=== PATIENT | male | born 1970 | race Caucasian/White ===

== ENCOUNTER 2019-09-22 10:42 | Inpatient (IN) | payer BC, MEDICAID, MEDICARE ==
[2019-09-22] MEDS ORDERED: Acetaminophen/HYDROcodone 325-5 MG Tab PO PRN (16:47)
[2019-09-22] MEDS ORDERED: Albuterol 8 GM Inhaler INH PRN (16:47)
--- NOTE | 2019-09-22 17:29 | PCM.HP.2 ---
H&P History of Present Illness - General Date of Service: 09/22/19 Admit Problem/Dx: Admission Diagnosis/Problem Admission Diagnosis/Problem Osteomyelitis of toe of right foot Source of Information: Patient, Old Records, Provider - History of Present Illness Initial Comments - Free Text/Narative: Bahman present for swing bed admission for right 2nd toe osteomyelitis for IV antibiotics until Oct 24. He was admitted to [facility] on Sep 10-, had cut his right 2nd toenail the week prior to admission in [place], came in with swollen red toe. Started on Zosyn & Vancomycin, Ciprofloxacin & Flagyl in ER. Cr was 0.81 on admission, climbed to 1.66, Vancomycin trough was 32.7 on 09/13, was getting 1250 mg every 8 hours since admission, dose was held on 09/14, random vanco trough was 14.7, current dose of Vancomycin 1250 mg every 24 hrs was started on 09/15 to present. Last vancomycin trough was today before 1149 dose, came back at 13.4. Goal initially was 15-20, then changed to 10-15 for his renal function. Discharge paperwork states 15-20 goal but pharmacy will verify this. His creatinine today was 1.4. He underwent amputation of right 2nd toe on 09/12, dressing changed by podiatry today, has appt with them on 09/27 at 840am, dressing to stay in place until seen by podiatry. He is weight bearing with postop shoe. He was evaluated by PT/OT did not require any services. Follow up with Infectious disease on 10/12 at 1420. Also has nephrology appt on 09/28 at 1130 am and family medicine follow up on 09/28 at 1345. His last bowel movement was today. Eating and drinking well. Blood pressures were uncontrolled initially in [place] but controlled with Amlodipine and Coreg on discharge. Had PICC line placed at discharge by Infectious disease. Pain is controlled with Hydrocodone/APAP. - Related Data Allergies/Adverse Reactions: Allergies Allergy/AdvReac Type Severity Reaction Status Date / Time No Known Allergies Allergy Verified 09/22/19 17:18 Home Medications: Home Meds Albuterol Sulfate [Albuterol Sulfate Hfa] 1 puff INH Q4H PRN 09/22/19 [History] Cefepime [Maxipime] 2 gm IVPUSH Q8H 09/22/19 [History] Docusate Sodium/Sennosides [Senokot-S] 1 tab PO BID 09/22/19 [History] Heparin Sodium,Porcine/PF [Heparin Lock Flush 100 Unit/ml] 300 unit IV ASDIRECTED PRN 09/22/19 [History] Hydrocodone/Acetaminophen [Hydrocodon-Acetaminophen 5-325] 1 tab PO Q6H PRN 09/22/19 [History] Insulin Glarg,Human.Rec.Analog [Lantus Solostar] 15 unit SQ BID 09/22/19 [History] Vancomycin/0.9 % Sod Chloride [Vanco 1.25 gm/250 ml-0.9% NaCl] 1.25 gm IV Q24H 09/22/19 [History] amLODIPine Besylate [Amlodipine Besylate] 10 mg PO DAILY 09/22/19 [History] carvediloL [Coreg] 25 mg PO BIDMEALS 09/22/19 [History] metroNIDAZOLE [Metronidazole] 500 mg PO TID 09/22/19 [History] polyethylene glycoL 3350 [MiraLAX] 17 gm PO DAILY 09/22/19 [History] Past Medical History Endocrine/Metabolic History: Reports: Diabetes, Type II - Past Surgical History Musculoskeletal Surgical History: Reports: Amputation (right 2nd toe 09/13/2019) Social & Family History - Tobacco Use Smoking Status *Q: Current Every Day Smoker - Alcohol Use Alcohol Use History: Yes H&P Review of Systems - Review of Systems: Review Of Systems: See Below General: Reports: No Symptoms HEENT: Reports: No Symptoms Pulmonary: Reports: No Symptoms Cardiovascular: Reports: No Symptoms Gastrointestinal: Reports: No Symptoms Genitourinary: Reports: No Symptoms Musculoskeletal: Reports: Foot Pain, Joint Pain (hands) Skin: Reports: Wound (right toe) Psychiatric: Reports: No Symptoms Neurological: Reports: No Symptoms Hematologic/Lymphatic: Reports: No Symptoms Immunologic: Reports: No Symptoms Exam - Exam Exam: See Below - Exam General: Alert, Oriented, Cooperative. No: Mild Distress HEENT: PERRLA, Conjunctiva Clear, EOMI, Hearing Intact, Posterior Pharynx Clear Neck: Supple, Trachea Midline Lungs: Clear to Auscultation, Normal Respiratory Effort Cardiovascular: Regular Rate, Regular Rhythm GI/Abdominal Exam: Normal Bowel Sounds, Soft, Non-Tender, No Distention (Male) Exam: Deferred Rectal (Males) Exam: Deferred Extremities: No Pedal Edema, Other (post-op shoe on right, dressing in place.) Peripheral Pulses: 2+: Radial (L), Radial (R) Skin: Wound (right 2nd toe) Psychiatric: Normal Affect, Normal Mood *Q Meaningful Use (ADM) - VTE Risk Assess *Q Each Risk Factor Represents 1 Point: Age 41 - 59 years, History of prior major surgery less than 1 month Total Score 1 Point Risk Factors: 2 Each Risk Factor Represents 2 Points: None Total Score 2 Point Risk Factors: 0 Each Risk Factor Represents 3 Points: None Total Score 3 Point Risk Factors: 0 Each Risk Factor Represents 5 Points: None Total Score 5 Point Risk Factors: 0 Venous Thromboembolism Risk Factor Score *Q: 2 - Problem List (1) Osteomyelitis of second toe of right foot SNOMED Code(s): 002468418, 891478777, 0696141500181846 ICD Code: M86.9 - OSTEOMYELITIS, UNSPECIFIED Status: Acute Current Visit: Yes (2) Status post amputation of toe of right foot SNOMED Code(s): 99141974413367735, 36466687565940192 ICD Code: Z89.421 - ACQUIRED ABSENCE OF OTHER RIGHT TOE(S) Status: Acute Current Visit: Yes Onset Date: ~09/13/19 (3) Diabetes SNOMED Code(s): 88901127 ICD Code: E11.9 - TYPE 2 DIABETES MELLITUS WITHOUT COMPLICATIONS Status: Chronic Current Visit: Yes Qualifiers: Diabetes mellitus type: type 2 Diabetes mellitus intermodal truck driver insulin use: unspecified intermodal truck driver insulin use status (4) History of alcohol dependence SNOMED Code(s): 187325805 ICD Code: F10.21 - ALCOHOL DEPENDENCE, IN REMISSION Status: Chronic Current Visit: Yes (5) Acute kidney injury SNOMED Code(s): 84472777, 19349077 ICD Code: N17.9 - ACUTE KIDNEY FAILURE, UNSPECIFIED Status: Acute Current Visit: Yes Onset Date: ~09/14/19 (6) Hypertension SNOMED Code(s): 91613138 ICD Code: I10 - ESSENTIAL (PRIMARY) HYPERTENSION Status: Chronic Current Visit: Yes Problem List Initiated/Reviewed/Updated: Yes Orders Last 24hrs: Active Orders 24 hr Category Date Time Status Patient Status [ADT] Routine ADT 09/22/19 16:30 Active Accu Check [Blood Glucose Check, Bedside] [RC] BIDMEALS Care 09/22/19 16:37 Active Ambulate [RC] PER UNIT ROUTINE Care 09/22/19 16:32 Active Height and Weight [RC] WEEKLY Care 09/22/19 16:30 Active Oxygen Therapy [RC] PRN Care 09/22/19 16:30 Active RT Post Treatment Assessment [RC] Click to Edit Care 09/22/19 16:48 Ordered Up ad Kiel [RC] ASDIRECTED Care 09/22/19 16:30 Active VTE/DVT Education [RC] Per Unit Routine Care 09/22/19 16:30 Active Vital Signs [RC] PER UNIT ROUTINE Care 09/22/19 16:30 Active Consistent Carbohydrate Diet [DIET] Diet 09/22/19 Dinner Active ALANINE AMINOTRANSFERASE,ALT [CHEM] WEEKLY Lab 09/27/19 06:00 Ordered ALANINE AMINOTRANSFERASE,ALT [CHEM] WEEKLY Lab 10/04/19 06:00 Ordered ALANINE AMINOTRANSFERASE,ALT [CHEM] WEEKLY Lab 10/11/19 06:00 Ordered ALANINE AMINOTRANSFERASE,ALT [CHEM] WEEKLY Lab 10/18/19 06:00 Ordered ALANINE AMINOTRANSFERASE,ALT [CHEM] WEEKLY Lab 10/25/19 06:00 Ordered C-REACTIVE PROTEIN [CHEM] WEEKLY Lab 09/27/19 06:00 Ordered C-REACTIVE PROTEIN [CHEM] WEEKLY Lab 10/04/19 06:00 Ordered C-REACTIVE PROTEIN [CHEM] WEEKLY Lab 10/11/19 06:00 Ordered C-REACTIVE PROTEIN [CHEM] WEEKLY Lab 10/18/19 06:00 Ordered C-REACTIVE PROTEIN [CHEM] WEEKLY Lab 10/25/19 06:00 Ordered CBC WITH AUTO DIFF [HEME] WEEKLY Lab 09/27/19 06:00 Ordered CBC WITH AUTO DIFF [HEME] WEEKLY Lab 10/04/19 06:00 Ordered CBC WITH AUTO DIFF [HEME] WEEKLY Lab 10/11/19 06:00 Ordered CBC WITH AUTO DIFF [HEME] WEEKLY Lab 10/18/19 06:00 Ordered CBC WITH AUTO DIFF [HEME] WEEKLY Lab 10/25/19 06:00 Ordered CREATININE, URINE WEEKLY Lab 09/27/19 06:00 Ordered CREATININE, URINE WEEKLY Lab 10/04/19 06:00 Ordered CREATININE, URINE WEEKLY Lab 10/11/19 06:00 Ordered CREATININE, URINE WEEKLY Lab 10/18/19 06:00 Ordered CREATININE, URINE WEEKLY Lab 10/25/19 06:00 Ordered SEDIMENTATION RATE MANUAL [HEME] WEEKLY Lab 09/27/19 06:00 Ordered SEDIMENTATION RATE MANUAL [HEME] WEEKLY Lab 10/04/19 06:00 Ordered SEDIMENTATION RATE MANUAL [HEME] WEEKLY Lab 10/11/19 06:00 Ordered SEDIMENTATION RATE MANUAL [HEME] WEEKLY Lab 10/18/19 06:00 Ordered SEDIMENTATION RATE MANUAL [HEME] WEEKLY Lab 10/25/19 06:00 Ordered Acetaminophen/HYDROcodone [[place] 325-5 MG] Med 09/22/19 16:47 Ordered 1 tab PO Q6H PRN Albuterol [Ventolin HFA] Med 09/22/19 16:47 Ordered 1 puff INH Q4H PRN Cefepime [Maxipime] Med 09/22/19 17:00 Ordered 2 gm IVPUSH Q8H Docusate Sodium/Sennosides [Senna Plus] Med 09/22/19 21:00 Ordered 1 tab PO BID Heparin Sodium [Heparin Lock Flush 100 Units/ML] Med 09/22/19 16:57 Active 300 units IVPUSH ASDIRECTED PRN Heparin Sodium [Heparin Lock Flush 100 Units/ML] Med 09/23/19 12:00 Active 300 units IVPUSH Q24H Heparin Sodium,Porcine/PF [Heparin Lock Flush 100 Unit/ Med 09/22/19 16:47 Ordered ml] 300 unit IV ASDIRECTED PRN Insulin Glarg,Human.Rec.Analog [LantUS Solostar] Med 09/22/19 21:00 Ordered 15 units SUBCUT BID Vancomycin 1.25 gm Med 09/23/19 12:00 Active Sodium Chloride 0.9% [Normal Saline (AdvBag)] 250 ml IV Q24H amLODIPine [Norvasc] Med 09/23/19 09:00 Ordered 10 mg PO DAILY carvediloL [Coreg] Med 09/22/19 18:00 Ordered 25 mg PO BIDMEALS metroNIDAZOLE [Flagyl] Med 09/22/19 16:32 Ordered 500 mg PO TID polyethylene glycoL 3350 [MiraLAX] Med 09/23/19 09:00 Ordered 17 gm PO DAILY Resuscitation Status Routine Resus Stat 09/22/19 16:30 Ordered Medication Orders Hydrocodone Bitart/Acetaminophen ([place] 325-5 Mg) 1 tab PO Q6H PRN PRN Reason: Pain (severe 7-10) Albuterol (Ventolin Hfa) 0 gm INH Q4H PRN PRN Reason: SHORTNESS OF BREATH Amlodipine Besylate (Norvasc) 10 mg PO DAILY [facility] Carvedilol (Coreg) 25 mg PO BIDMEALS [facility] Cefepime HCl (Maxipime) 2 gm IVPUSH Q8H [facility] Heparin Sodium (Porcine) (Heparin Lock Flush 100 Units/Ml) 300 units IVPUSH Q8H [facility] Heparin Sodium (Porcine) (Heparin Lock Flush 100 Units/Ml) 300 units IVPUSH Q24H [facility] Heparin Sodium (Porcine) (Heparin Lock Flush 100 Units/Ml) 300 units IVPUSH ASDIRECTED PRN PRN Reason: FLUSH Vancomycin HCl 1.25 gm/ Sodium (Chloride) 250 mls @ 125 mls/hr IV Q24H [facility] Insulin Glargine (Lantus Solostar) 15 units SUBCUT BID [facility] Metronidazole (Flagyl) 500 mg PO Q8H [facility] Polyethylene Glycol (Miralax) 17 gm PO DAILY [facility] Senna/Docusate Sodium (Senna Plus) 1 tab PO BID [facility] Assessment/Plan Comment:: 1. Admit to swingbed for IV Vancomycin 1250 mg q24h, dosing per pharmacy protocol; Cefepime 2 gram IV q8h and Flagyl 500 mg po q8hr until Oct 24. 2. CBC, Creatinine, ALT, ESR, & CRP weekly on Friday, fax to Infectious Disease. 3. Vanco trough tomorrow before next dose and pharmacy will verify with [place] on goal ranges as two different ones are listed. 4. Consistent Carb diet, Accuchecks bid. Lantus 15 units bid. 5. Weightbearing with post-op shoe, activity up ad kiel. 6. Dressing change next week with podiatry. Appts listed in HPI and in physical chart. Mary Hines is going to try and coordinate his appointments for one day instead of have 1 on and 2 on . 7. DVT prophylaxis: ambulate. 8. FULL CODE. 9. Adjust treatments as necessary. - Mortality Measure Prognosis:: Good
[2019-09-22] MEDS: metroNIDAZOLE 500 MG Tab PO SCH (18:51)
[2019-09-22] MEDS: Cefepime 2 GM Vial IVPUSH SCH (18:52)
[2019-09-22] MEDS: Carvedilol 25 MG Tab PO SCH (19:06)
[2019-09-22] MEDS ORDERED: Insulin Glargine,Human Rec. Analog 100 Units/ML 3 ML Pen SUBCUT ONE (20:54)
[2019-09-22] MEDS: Insulin Glargine,Human Rec. Analog 100 Units/ML 3 ML Pen SUBCUT SCH (20:57)
[2019-09-23] MEDS: Cefepime 2 GM Vial IVPUSH SCH ×3 (01:58→17:21)
[2019-09-23] MEDS: Sodium Chloride 0.9% 10 ML Syringe FLUSH PRN ×3 (02:01→14:29)
[2019-09-23] MEDS: metroNIDAZOLE 500 MG Tab PO SCH ×3 (02:16→17:21)
[2019-09-23] MEDS: Insulin Glargine,Human Rec. Analog 100 Units/ML 3 ML Pen SUBCUT SCH ×2 (08:42→21:30)
[2019-09-23] MEDS: Carvedilol 25 MG Tab PO SCH ×2 (08:43→17:36)
[2019-09-23] MEDS: amLODIPine 10 MG Tab PO SCH (08:44)
[2019-09-23] MEDS ORDERED: Polyethylene Glycol 3350 Powder 17 GM Packet PO SCH (09:00)
[2019-09-23] MEDS: Acetaminophen 325 MG Tab PO PRN ×2 (11:26→17:34)
[2019-09-23] MEDS ORDERED: Polyethylene Glycol 3350 Powder 17 GM Packet PO PRN (12:43)
[2019-09-24] MEDS: metroNIDAZOLE 500 MG Tab PO SCH ×3 (00:46→17:57)
[2019-09-24] MEDS: Cefepime 2 GM Vial IVPUSH SCH ×3 (00:46→17:57)
[2019-09-24] MEDS: Sodium Chloride 0.9% 10 ML Syringe FLUSH PRN ×5 (00:51→17:58)
[2019-09-24] MEDS: Acetaminophen 325 MG Tab PO PRN ×2 (01:02→07:26)
[2019-09-24] MEDS: Carvedilol 25 MG Tab PO SCH ×2 (09:17→17:57)
[2019-09-24] MEDS: amLODIPine 10 MG Tab PO SCH (09:18)
[2019-09-24] MEDS: Insulin Glargine,Human Rec. Analog 100 Units/ML 3 ML Pen SUBCUT SCH ×2 (09:19→21:31)
[2019-09-25] MEDS: metroNIDAZOLE 500 MG Tab PO SCH ×3 (00:14→17:38)
[2019-09-25] MEDS: Cefepime 2 GM Vial IVPUSH SCH ×3 (00:14→17:39)
[2019-09-25] MEDS: Sodium Chloride 0.9% 10 ML Syringe FLUSH PRN ×6 (00:22→17:43)
[2019-09-25] MEDS: Acetaminophen 325 MG Tab PO PRN ×3 (00:26→16:14)
[2019-09-25] MEDS: Carvedilol 25 MG Tab PO SCH ×2 (08:00→17:48)
[2019-09-25] MEDS: amLODIPine 10 MG Tab PO SCH (08:00)
[2019-09-25] MEDS: Insulin Glargine,Human Rec. Analog 100 Units/ML 3 ML Pen SUBCUT SCH ×2 (08:04→21:33)
[2019-09-26] MEDS: metroNIDAZOLE 500 MG Tab PO SCH ×3 (00:46→17:34)
[2019-09-26] MEDS: Cefepime 2 GM Vial IVPUSH SCH ×3 (00:46→17:39)
[2019-09-26] MEDS: Sodium Chloride 0.9% 10 ML Syringe FLUSH PRN ×8 (00:48→17:44)
[2019-09-26] MEDS: amLODIPine 10 MG Tab PO SCH (08:49)
[2019-09-26] MEDS: Carvedilol 25 MG Tab PO SCH ×2 (08:49→17:34)
[2019-09-26] MEDS: Insulin Glargine,Human Rec. Analog 100 Units/ML 3 ML Pen SUBCUT SCH ×2 (08:55→21:21)
[2019-09-26] MEDS: Acetaminophen 325 MG Tab PO PRN ×2 (09:18→17:51)
[2019-09-27] MEDS: metroNIDAZOLE 500 MG Tab PO SCH ×3 (00:06→17:30)
[2019-09-27] MEDS: Cefepime 2 GM Vial IVPUSH SCH ×3 (00:11→17:26)
[2019-09-27] MEDS: Sodium Chloride 0.9% 10 ML Syringe FLUSH PRN ×4 (00:19→17:26)
[2019-09-27] MEDS: Insulin Glargine,Human Rec. Analog 100 Units/ML 3 ML Pen SUBCUT SCH ×2 (08:39→20:53)
[2019-09-27] MEDS: amLODIPine 10 MG Tab PO SCH (08:48)
[2019-09-27] MEDS: Carvedilol 25 MG Tab PO SCH ×2 (08:48→17:39)
[2019-09-27] MEDS: Acetaminophen 325 MG Tab PO PRN (17:52)
[2019-09-28] MEDS: metroNIDAZOLE 500 MG Tab PO SCH ×3 (01:06→17:49)
[2019-09-28] MEDS: Cefepime 2 GM Vial IVPUSH SCH ×3 (01:08→17:49)
[2019-09-28] MEDS: amLODIPine 10 MG Tab PO SCH (08:15)
[2019-09-28] MEDS: Carvedilol 25 MG Tab PO SCH ×2 (08:16→17:49)
[2019-09-28] MEDS: Insulin Glargine,Human Rec. Analog 100 Units/ML 3 ML Pen SUBCUT SCH ×2 (08:17→21:33)
[2019-09-28] MEDS: Sodium Chloride 0.9% 10 ML Syringe FLUSH PRN ×2 (13:50→17:49)
[2019-09-29] MEDS: metroNIDAZOLE 500 MG Tab PO SCH ×3 (00:56→17:11)
[2019-09-29] MEDS: Acetaminophen 325 MG Tab PO PRN (00:57)
[2019-09-29] MEDS: Cefepime 2 GM Vial IVPUSH SCH ×3 (00:58→17:11)
[2019-09-29] MEDS: Sodium Chloride 0.9% 10 ML Syringe FLUSH PRN ×6 (00:59→17:12)
[2019-09-29] MEDS: Carvedilol 25 MG Tab PO SCH ×2 (09:11→17:11)
[2019-09-29] MEDS: amLODIPine 10 MG Tab PO SCH (09:12)
[2019-09-29] MEDS: Insulin Glargine,Human Rec. Analog 100 Units/ML 3 ML Pen SUBCUT SCH ×2 (09:21→20:49)
[2019-09-30] MEDS: Cefepime 2 GM Vial IVPUSH SCH ×3 (00:10→16:34)
[2019-09-30] MEDS: metroNIDAZOLE 500 MG Tab PO SCH ×3 (00:10→17:55)
[2019-09-30] MEDS: Sodium Chloride 0.9% 10 ML Syringe FLUSH PRN ×5 (00:20→16:40)
[2019-09-30] MEDS: Carvedilol 25 MG Tab PO SCH ×2 (08:12→17:56)
[2019-09-30] MEDS: Insulin Glargine,Human Rec. Analog 100 Units/ML 3 ML Pen SUBCUT SCH ×2 (08:13→20:41)
[2019-09-30] MEDS: amLODIPine 10 MG Tab PO SCH (08:14)
[2019-10-01] MEDS: metroNIDAZOLE 500 MG Tab PO SCH ×3 (00:04→17:30)
[2019-10-01] MEDS: Cefepime 2 GM Vial IVPUSH SCH ×3 (00:09→17:50)
[2019-10-01] MEDS: Sodium Chloride 0.9% 10 ML Syringe FLUSH PRN ×4 (00:16→17:50)
[2019-10-01] MEDS: Acetaminophen 325 MG Tab PO PRN (03:20)
[2019-10-01] MEDS: Carvedilol 25 MG Tab PO SCH ×2 (08:39→17:31)
[2019-10-01] MEDS: amLODIPine 10 MG Tab PO SCH (08:41)
[2019-10-01] MEDS: Insulin Glargine,Human Rec. Analog 100 Units/ML 3 ML Pen SUBCUT SCH ×2 (08:41→21:23)
[2019-10-01] MEDS ORDERED: Insulin Glargine,Human Rec. Analog 100 Units/ML 3 ML Pen SUBCUT ONE (08:47)
[2019-10-02] MEDS: metroNIDAZOLE 500 MG Tab PO SCH ×3 (01:26→17:32)
[2019-10-02] MEDS: Sodium Chloride 0.9% 10 ML Syringe FLUSH PRN ×5 (01:27→17:18)
[2019-10-02] MEDS: Cefepime 2 GM Vial IVPUSH SCH ×3 (01:30→17:20)
[2019-10-02] MEDS: Carvedilol 25 MG Tab PO SCH ×3 (08:58→17:46)
[2019-10-02] MEDS: Insulin Glargine,Human Rec. Analog 100 Units/ML 3 ML Pen SUBCUT SCH ×2 (09:02→21:32)
[2019-10-02] MEDS: amLODIPine 10 MG Tab PO SCH (09:03)
[2019-10-02] MEDS: Acetaminophen 325 MG Tab PO PRN (10:46)
[2019-10-03] MEDS: Sodium Chloride 0.9% 10 ML Syringe FLUSH PRN ×4 (00:22→17:27)
[2019-10-03] MEDS: metroNIDAZOLE 500 MG Tab PO SCH ×3 (00:22→17:26)
[2019-10-03] MEDS: Cefepime 2 GM Vial IVPUSH SCH ×3 (00:23→17:28)
[2019-10-03] MEDS: Acetaminophen 325 MG Tab PO PRN ×2 (00:24→09:36)
[2019-10-03] MEDS: Carvedilol 25 MG Tab PO SCH (08:13)
[2019-10-03] MEDS: amLODIPine 10 MG Tab PO SCH (08:14)
[2019-10-03] MEDS: Insulin Glargine,Human Rec. Analog 100 Units/ML 3 ML Pen SUBCUT SCH ×2 (08:14→21:01)
--- NOTE | 2019-10-03 09:09 | PCM.PN ---
- General Info Date of Service: 10/03/19 Admission Dx/Problem (Free Text): Blood pressure medication. I looked on the chart and he was not on it before. Blood pressures are actually running low and is refuses today and his blood pressure is good. He says his pain is under control with some Tylenol. Does not want hydrocodone. He's overall doing well. No fevers or chills. - Patient Data Vitals - Most Recent: Last Vital Signs Temp 98.1 F 10/02/19 08:00 Pulse 79 10/03/19 08:13 Resp 16 10/02/19 08:00 BP 134/89 10/03/19 08:14 Pulse Ox 98 10/02/19 16:00 Weight - Most Recent: 181 lb 1 oz Lab Results Last 24 Hours: Laboratory Results - last 24 hr 10/02/19 10/02/19 Range/Units 07:27 11:47 POC Glucose 194 H 277 H (74-100) mg/dL Med Orders - Current: Current Medications Acetaminophen (Tylenol) 650 mg PO Q4H PRN PRN Reason: Pain (moderate 4-6) Last Admin: 10/03/19 00:24 Dose: 650 mg Documented by: Albuterol (Ventolin Hfa) 0 gm INH Q4H PRN PRN Reason: SHORTNESS OF BREATH Cefepime HCl (Maxipime) 2 gm IVPUSH Q8H [facility] Last Admin: 10/03/19 00:23 Dose: 2 gm Documented by: Heparin Sodium (Porcine) (Heparin Lock Flush 100 Units/Ml) 300 units IVPUSH Q8H [facility] Last Admin: 10/03/19 00:22 Dose: 300 units Documented by: Heparin Sodium (Porcine) (Heparin Lock Flush 100 Units/Ml) 300 units IVPUSH ASDIRECTED PRN PRN Reason: FLUSH Heparin Sodium (Porcine) (Heparin Lock Flush 100 Units/Ml) 300 units IVPUSH Q24H [facility] Last Admin: 10/02/19 13:31 Dose: 300 units Documented by: Vancomycin HCl (Vancomycin 1.5 Gm/300 Ml Premix) 300 mls @ 200 mls/hr IV Q24H [facility] Last Admin: 10/02/19 11:49 Dose: 200 mls/hr Documented by: Insulin Glargine (Lantus Solostar) 15 units SUBCUT BID [facility] Last Admin: 10/03/19 08:14 Dose: 15 units Documented by: Metronidazole (Flagyl) 500 mg PO Q8H [facility] Last Admin: 10/03/19 08:15 Dose: 500 mg Documented by: Polyethylene Glycol (Miralax) 17 gm PO DAILY PRN PRN Reason: Constipation Senna/Docusate Sodium (Senna Plus) 1 tab PO BID PRN PRN Reason: Constipation Sodium Chloride (Saline Flush) 10 ml FLUSH ASDIRECTED PRN PRN Reason: IV Use Last Admin: 10/03/19 00:22 Dose: 10 ml Documented by: Vancomycin HCl (Pharmacy To Dose - Vancomycin) 1 dose .XX ASDIRECTED [facility] Discontinued Medications Hydrocodone Bitart/Acetaminophen ([place] 325-5 Mg) 1 tab PO Q6H PRN PRN Reason: Pain (severe 7-10) Last Admin: 09/22/19 20:57 Dose: 1 tab Documented by: Amlodipine Besylate (Norvasc) 10 mg PO DAILY [facility] Last Admin: 10/03/19 08:14 Dose: Not Given Documented by: Carvedilol (Coreg) 25 mg PO BIDMEALS [facility] Last Admin: 10/03/19 08:13 Dose: Not Given Documented by: Heparin Sodium (Porcine) (Heparin Lock Flush 100 Units/Ml) 300 units IVPUSH Q24H [facility] Last Admin: 09/23/19 14:29 Dose: 300 units Documented by: Vancomycin HCl 1.25 gm/ Sodium (Chloride) 250 mls @ 125 mls/hr IV Q24H [facility] Last Admin: 09/23/19 12:04 Dose: 125 mls/hr Documented by: Polyethylene Glycol (Miralax) 17 gm PO DAILY [facility] Last Admin: 09/23/19 08:47 Dose: Not Given Documented by: Senna/Docusate Sodium (Senna Plus) 1 tab PO BID [facility] Last Admin: 09/23/19 08:43 Dose: 1 tab Documented by: - Exam General: Alert, Oriented, Cooperative Extremities: Other (Partially amputated toe is healing nicely sutures in place no erythema or drainage.) Sepsis Event Note - Evaluation Sepsis Screening Result: No Definite Risk - Focused Exam Vital Signs: Vital Signs Pulse BP 10/03/19 08:14 134/89 10/03/19 08:13 79 134/89 - Problem List & Annotations (1) Acute kidney injury SNOMED Code(s): 34082597, 83875375 Code(s): N17.9 - ACUTE KIDNEY FAILURE, UNSPECIFIED Status: Acute Current Visit: Yes Onset Date: ~09/14/19 (2) Osteomyelitis of second toe of right foot SNOMED Code(s): 952719631, 953867699, 9482306049904941 Code(s): M86.9 - OSTEOMYELITIS, UNSPECIFIED Status: Acute Current Visit: Yes (3) Status post amputation of toe of right foot SNOMED Code(s): 06536978411513906, 26466918363561608 Code(s): Z89.421 - ACQUIRED ABSENCE OF OTHER RIGHT TOE(S) Status: Acute Current Visit: Yes Onset Date: ~09/13/19 (4) Diabetes SNOMED Code(s): 38108284 Code(s): E11.9 - TYPE 2 DIABETES MELLITUS WITHOUT COMPLICATIONS Status: Chronic Current Visit: Yes Qualifiers: Diabetes mellitus type: type 2 Diabetes mellitus terminal system operator insulin use: unspecified terminal system operator insulin use status (5) History of alcohol dependence SNOMED Code(s): 066646346 Code(s): F10.21 - ALCOHOL DEPENDENCE, IN REMISSION Status: Chronic Current Visit: Yes (6) Hypertension SNOMED Code(s): 97113353 Code(s): I10 - ESSENTIAL (PRIMARY) HYPERTENSION Status: Chronic Current Visit: Yes - Problem List Review Problem List Initiated/Reviewed/Updated: Yes - Plan Plan:: 1. DC amlodipine and carvedilol. Watch blood pressure closely. 2. Continue current care.
[2019-10-04] MEDS: metroNIDAZOLE 500 MG Tab PO SCH ×3 (00:39→17:07)
[2019-10-04] MEDS: Sodium Chloride 0.9% 10 ML Syringe FLUSH PRN ×3 (00:42→17:07)
[2019-10-04] MEDS: Cefepime 2 GM Vial IVPUSH SCH ×3 (00:42→17:07)
[2019-10-04] MEDS: Insulin Glargine,Human Rec. Analog 100 Units/ML 3 ML Pen SUBCUT SCH ×2 (08:11→21:29)
[2019-10-04] MEDS ORDERED: Vancomycin/Dextrose 5%-Water 200 ML IV SCH (13:00)
[2019-10-05] MEDS: Sodium Chloride 0.9% 10 ML Syringe FLUSH PRN ×5 (00:31→17:17)
[2019-10-05] MEDS: Vancomycin/Dextrose 5%-Water 200 ML IV SCH ×2 (00:32→12:37)
[2019-10-05] MEDS: metroNIDAZOLE 500 MG Tab PO SCH ×3 (00:33→17:17)
[2019-10-05] MEDS: Cefepime 2 GM Vial IVPUSH SCH ×3 (01:35→17:17)
[2019-10-05] MEDS: Insulin Glargine,Human Rec. Analog 100 Units/ML 3 ML Pen SUBCUT SCH ×2 (09:13→20:52)
[2019-10-05] MEDS: Acetaminophen 325 MG Tab PO PRN (09:30)
[2019-10-06] MEDS: Vancomycin/Dextrose 5%-Water 200 ML IV SCH ×3 (00:01→23:57)
[2019-10-06] MEDS: metroNIDAZOLE 500 MG Tab PO SCH ×3 (00:23→16:12)
[2019-10-06] MEDS: Sodium Chloride 0.9% 10 ML Syringe FLUSH PRN ×3 (01:02→13:30)
[2019-10-06] MEDS: Cefepime 2 GM Vial IVPUSH SCH ×3 (01:03→16:03)
[2019-10-06] MEDS: Insulin Glargine,Human Rec. Analog 100 Units/ML 3 ML Pen SUBCUT SCH ×2 (09:29→21:00)
[2019-10-06] MEDS: Acetaminophen 325 MG Tab PO PRN (15:54)
[2019-10-07] MEDS: metroNIDAZOLE 500 MG Tab PO SCH ×3 (00:04→17:39)
[2019-10-07] MEDS: Sodium Chloride 0.9% 10 ML Syringe FLUSH PRN ×6 (00:59→17:40)
[2019-10-07] MEDS: Cefepime 2 GM Vial IVPUSH SCH ×3 (01:02→17:39)
[2019-10-07] MEDS: Acetaminophen 325 MG Tab PO PRN (01:13)
[2019-10-07] MEDS: Insulin Glargine,Human Rec. Analog 100 Units/ML 3 ML Pen SUBCUT SCH ×2 (09:41→20:58)
[2019-10-07] MEDS: Vancomycin/Dextrose 5%-Water 200 ML IV SCH ×2 (12:21→23:55)
[2019-10-08] MEDS: metroNIDAZOLE 500 MG Tab PO SCH ×3 (00:42→17:24)
[2019-10-08] MEDS: Sodium Chloride 0.9% 10 ML Syringe FLUSH PRN ×7 (00:53→17:26)
[2019-10-08] MEDS: Cefepime 2 GM Vial IVPUSH SCH ×3 (01:00→17:24)
[2019-10-08] MEDS: Insulin Glargine,Human Rec. Analog 100 Units/ML 3 ML Pen SUBCUT SCH ×2 (09:14→21:08)
[2019-10-08] MEDS: Vancomycin/Dextrose 5%-Water 200 ML IV SCH (13:09)
[2019-10-09] MEDS: Vancomycin/Dextrose 5%-Water 200 ML IV SCH ×3 (00:41→23:58)
[2019-10-09] MEDS: metroNIDAZOLE 500 MG Tab PO SCH ×3 (00:43→16:38)
[2019-10-09] MEDS: Cefepime 2 GM Vial IVPUSH SCH ×3 (01:45→16:38)
[2019-10-09] MEDS: Insulin Glargine,Human Rec. Analog 100 Units/ML 3 ML Pen SUBCUT SCH ×2 (08:23→21:32)
[2019-10-09] MEDS: Sodium Chloride 0.9% 10 ML Syringe FLUSH PRN ×2 (08:24→13:11)
[2019-10-10] MEDS: metroNIDAZOLE 500 MG Tab PO SCH ×3 (00:01→16:45)
[2019-10-10] MEDS: Sodium Chloride 0.9% 10 ML Syringe FLUSH PRN ×3 (00:59→09:20)
[2019-10-10] MEDS: Cefepime 2 GM Vial IVPUSH SCH ×3 (01:05→16:47)
[2019-10-10] MEDS: Insulin Glargine,Human Rec. Analog 100 Units/ML 3 ML Pen SUBCUT SCH ×2 (09:21→20:46)
[2019-10-10] MEDS ORDERED: Insulin Glargine,Human Rec. Analog 100 Units/ML 3 ML Pen SUBCUT ONE (09:30)
[2019-10-11] MEDS: metroNIDAZOLE 500 MG Tab PO SCH ×3 (00:04→17:19)
[2019-10-11] MEDS: Cefepime 2 GM Vial IVPUSH SCH ×3 (00:13→17:21)
[2019-10-11] MEDS: Sodium Chloride 0.9% 10 ML Syringe FLUSH PRN ×4 (00:19→17:33)
[2019-10-11] MEDS: Vancomycin/Dextrose 5%-Water 200 ML IV SCH (06:53)
[2019-10-11] MEDS: amLODIPine 5 MG Tab PO SCH (09:36)
[2019-10-11] MEDS: Insulin Glargine,Human Rec. Analog 100 Units/ML 3 ML Pen SUBCUT SCH ×2 (09:41→20:38)
--- NOTE | 2019-10-11 11:07 | PN ---
DATE SEEN: 10/11/2019 HISTORY: Bahman is a 48-year-old man with type 2 diabetes with diabetic neuropathy and a recent partial amputation of his right 2nd toe due to osteomyelitis and gangrene. He is now in swing bed on IV antibiotics until October 24 for the osteomyelitis. He is tolerating this satisfactorily. He states he overall feels better. His laboratory data has been stable, and overall he is showing clinical improvement. PHYSICAL EXAMINATION: GENERAL: He is alert and comfortable, examined lying and sitting in his bed. VITAL SIGNS: Blood pressure 144/97, pulse is 78 and regular, respirations 16, O2 saturation 97% on room air, temperature 98. SKIN: Shows multiple tattoos. He has sutures in place to the 2nd toe on the right at the site of partial amputation. There is a small amount of devitalized tissue, but a central pink area of the amputated stump with no drainage or inflammation. LUNGS: Clear. HEART: Regular. LABORATORY DATA: White count 4500, hemoglobin 12.3, platelets 180,000, glucose 148. CRP less than 0.2. Last vancomycin trough yesterday elevated. ASSESSMENT: 1. Osteomyelitis of toe, stable and improving post amputation and on IV antibiotics. 2. Type 2 diabetes with diabetic peripheral vascular disease and neuropathy. PLAN: As mentioned, he will be on antibiotics until October 24. His antibiotic care is directed by Infectious Disease in [place], along with dosing. Continue current cares. /[id number] IZZY/TOÑO
[2019-10-12] MEDS: metroNIDAZOLE 500 MG Tab PO SCH ×2 (01:15→08:20)
[2019-10-12] MEDS: Cefepime 2 GM Vial IVPUSH SCH ×3 (01:23→16:51)
[2019-10-12] MEDS: Sodium Chloride 0.9% 10 ML Syringe FLUSH PRN ×5 (03:10→15:54)
[2019-10-12] MEDS: Insulin Glargine,Human Rec. Analog 100 Units/ML 3 ML Pen SUBCUT SCH ×2 (08:17→21:41)
[2019-10-12] MEDS: amLODIPine 5 MG Tab PO SCH (08:19)
[2019-10-12] MEDS ORDERED: metroNIDAZOLE/Normal Saline 100 ML IV SCH (10:00)
[2019-10-12] MEDS: metroNIDAZOLE/Normal Saline 100 ML IV SCH (15:48)
[2019-10-13] MEDS: Cefepime 2 GM Vial IVPUSH SCH ×3 (00:21→17:20)
[2019-10-13] MEDS: Sodium Chloride 0.9% 10 ML Syringe FLUSH PRN ×10 (00:23→17:28)
[2019-10-13] MEDS: metroNIDAZOLE/Normal Saline 100 ML IV SCH ×3 (00:30→16:08)
[2019-10-13] MEDS: Acetaminophen 325 MG Tab PO PRN (00:36)
[2019-10-13] MEDS: Insulin Glargine,Human Rec. Analog 100 Units/ML 3 ML Pen SUBCUT SCH ×2 (08:34→21:01)
[2019-10-13] MEDS: amLODIPine 5 MG Tab PO SCH (08:38)
[2019-10-14] MEDS: metroNIDAZOLE/Normal Saline 100 ML IV SCH ×3 (00:44→16:04)
[2019-10-14] MEDS: Cefepime 2 GM Vial IVPUSH SCH ×3 (02:02→17:13)
[2019-10-14] MEDS: Sodium Chloride 0.9% 10 ML Syringe FLUSH PRN ×8 (02:03→17:15)
[2019-10-14] MEDS: Acetaminophen 325 MG Tab PO PRN (03:11)
[2019-10-14] MEDS: amLODIPine 5 MG Tab PO SCH (09:31)
[2019-10-14] MEDS: Insulin Glargine,Human Rec. Analog 100 Units/ML 3 ML Pen SUBCUT SCH ×2 (09:32→20:26)
--- NOTE | 2019-10-14 11:04 | PN ---
DATE SEEN: 10/14/2019 HISTORY: Mr. Watson is a 48-year-old man from [place] who had a right distal 2nd toe amputation due to osteomyelitis with gangrene. He has been on IV antibiotics for resistant bacteria that are due to go through October 24 as directed by his Infectious Disease doctor in [place]. Bahman also has type 2 diabetes and hypertension. There has been a problem with full compliance with his medications such that his metronidazole pills and Norvasc pills have been found on his bed sheets after witnessing them being taken such that suggesting he spit them out again. For this reason, his metronidazole was switched from oral to intravenous. PHYSICAL EXAMINATION: GENERAL: Today, he is alert and comfortable. EXTREMITIES: Toe distal tip shows moderate eschar devitalized tissue, but slight pink at the very tip. Eight sutures are removed without difficulty today. VITAL SIGNS: Blood pressure 145/98, pulse 92, temperature 98.6, respirations 20. ASSESSMENT: 1. Osteomyelitis, right 2nd toe. 2. Type 2 diabetes. 3. Hypertension. 4. Poor compliance. PLAN: Continue his IV antibiotics through October 24 as scheduled and as directed by his Infectious Disease doctor in [place]. I have discussed with Bahman the importance of taking his Norvasc daily for hypertension. /[id number] [id number] IZZY/TOÑO
[2019-10-14] MEDS ORDERED: Vancomycin/Dextrose 5%-Water 200 ML IV ONE (13:30)
[2019-10-15] MEDS: metroNIDAZOLE/Normal Saline 100 ML IV SCH ×4 (00:13→23:34)
[2019-10-15] MEDS: Sodium Chloride 0.9% 10 ML Syringe FLUSH PRN ×10 (00:13→18:58)
[2019-10-15] MEDS: Cefepime 2 GM Vial IVPUSH SCH ×3 (01:15→16:54)
[2019-10-15] MEDS: Vancomycin/Dextrose 5%-Water 200 ML IV SCH ×2 (03:00→17:58)
[2019-10-15] MEDS: amLODIPine 5 MG Tab PO SCH (08:07)
[2019-10-15] MEDS: Insulin Glargine,Human Rec. Analog 100 Units/ML 3 ML Pen SUBCUT SCH ×2 (08:08→21:14)
--- NOTE | 2019-10-15 18:32 | PN ---
DATE SEEN: 10/15/2019 SUBJECTIVE: Bahman Watson is a 48-year-old male admitted for long-term antibiotic therapy. Had a distal amputation, right foot. Antibiotic therapy on board, cefepime 2 g q.8 hours. Antibiotic therapy in place, was switched from IV to oral metronidazole due to lack of reliable intake orally. Medications reviewed and appropriate. Vancomycin also on 1 g q.14 hours schedule. No particular complaints. Pain absent. OBJECTIVE: VITAL SIGNS: 36.7, 139/94, 18, 97.2. GENERAL: Appears comfortable. Speech was fluent. CHEST: Clear to all lung schneider. HEART: No ectopy or murmur. ABDOMEN: Benign. EXTREMITIES: Right toe dressed. ASSESSMENT: Osteomyelitis with complicated infection. PLAN: Continue antibiotics on board. Present treatment in place. /[id number] 1405 EWELINA/TOÑO
[2019-10-16] MEDS: Cefepime 2 GM Vial IVPUSH SCH ×3 (01:01→17:16)
[2019-10-16] MEDS: Sodium Chloride 0.9% 10 ML Syringe FLUSH PRN ×7 (01:05→23:06)
[2019-10-16] MEDS: metroNIDAZOLE/Normal Saline 100 ML IV SCH ×3 (08:42→23:06)
[2019-10-16] MEDS: Insulin Glargine,Human Rec. Analog 100 Units/ML 3 ML Pen SUBCUT SCH ×2 (08:45→23:04)
[2019-10-16] MEDS: amLODIPine 5 MG Tab PO SCH (08:54)
[2019-10-16] MEDS: Vancomycin/Dextrose 5%-Water 200 ML IV SCH ×2 (09:45)
[2019-10-16] MEDS: Acetaminophen 325 MG Tab PO PRN (16:14)
[2019-10-17] MEDS: Vancomycin/Dextrose 5%-Water 200 ML IV SCH ×2 (00:08→14:13)
[2019-10-17] MEDS: Sodium Chloride 0.9% 10 ML Syringe FLUSH PRN ×4 (00:09→16:30)
[2019-10-17] MEDS: Cefepime 2 GM Vial IVPUSH SCH ×3 (01:06→16:26)
[2019-10-17] MEDS: metroNIDAZOLE/Normal Saline 100 ML IV SCH ×2 (08:36→15:15)
[2019-10-17] MEDS: amLODIPine 5 MG Tab PO SCH (08:40)
[2019-10-17] MEDS: Insulin Glargine,Human Rec. Analog 100 Units/ML 3 ML Pen SUBCUT SCH ×2 (08:45→22:12)
--- NOTE | 2019-10-17 13:04 | PN ---
DATE SEEN: 10/17/2019 SUBJECTIVE: Bahman Watson is a 48-year-old male in today for long-term antibiotic therapy. Three drug therapy for osteomyelitis. Doing well. Wound to be reviewed on Friday. OBJECTIVE: Exam was otherwise satisfactory. Vital signs were stable. LABORATORY STUDIES: Glucose is moderately elevated 158, 193, 221, 213, 195. PLAN: On Lantus therapy only. Continue supportive management. /[id number] 1258 EWELINA/TOÑO
--- NOTE | 2019-10-17 13:11 | PN ---
DATE SEEN: 10/16/2019 REASON FOR ADMISSION: Complicated osteomyelitis. SUBJECTIVE: Bahman Watson is a 48-year-old male admitted for antibiotic therapy for osteomyelitis. Presently on Maxipime, metronidazole, and vancomycin. Pharmacy following Pain by reports under control. PHYSICAL EXAMINATION: GENERAL: Appears comfortable. ASSESSMENT: Complicated osteomyelitis. PLAN: Continue present therapy, duration 10/25/2019. /[id number] 1300 EWELINA/TOÑO
[2019-10-18] MEDS: metroNIDAZOLE/Normal Saline 100 ML IV SCH ×4 (00:45→23:34)
[2019-10-18] MEDS: Sodium Chloride 0.9% 10 ML Syringe FLUSH PRN ×9 (00:46→19:23)
[2019-10-18] MEDS: Acetaminophen 325 MG Tab PO PRN ×2 (00:53→08:23)
[2019-10-18] MEDS: Cefepime 2 GM Vial IVPUSH SCH ×3 (01:50→17:22)
[2019-10-18] MEDS: Vancomycin/Dextrose 5%-Water 200 ML IV SCH ×2 (03:50→17:44)
[2019-10-18] MEDS: amLODIPine 5 MG Tab PO SCH (08:26)
[2019-10-18] MEDS: Insulin Glargine,Human Rec. Analog 100 Units/ML 3 ML Pen SUBCUT SCH ×2 (08:26→21:15)
--- NOTE | 2019-10-18 12:25 | PN ---
DATE SEEN: 10/18/2019 SUBJECTIVE: Bahman Watson is a 48-year-old male for long-term antibiotic use. Expected 10/25/2019. Presents with mild shortness of breath and complicated cough, known emphysema. Requests albuterol inhaler. OBJECTIVE: LUNGS: Reasonably clear. HEART: Sounds distant. ABDOMEN: Benign. ASSESSMENT: Chronic obstructive pulmonary disease. PLAN: We will add albuterol inhaler per protocol. /[id number] [id number] 1220 EWELINA/TOÑO
[2019-10-19] MEDS: Cefepime 2 GM Vial IVPUSH SCH ×3 (00:34→17:13)
[2019-10-19] MEDS: Sodium Chloride 0.9% 10 ML Syringe FLUSH PRN ×7 (00:50→17:22)
[2019-10-19] MEDS: metroNIDAZOLE/Normal Saline 100 ML IV SCH ×2 (07:26→15:59)
[2019-10-19] MEDS: Acetaminophen 325 MG Tab PO PRN ×2 (07:42→16:19)
[2019-10-19] MEDS: Vancomycin/Dextrose 5%-Water 200 ML IV SCH ×2 (08:38→21:12)
[2019-10-19] MEDS: amLODIPine 5 MG Tab PO SCH (08:42)
[2019-10-19] MEDS: Insulin Glargine,Human Rec. Analog 100 Units/ML 3 ML Pen SUBCUT SCH ×2 (08:48→21:04)
[2019-10-19] MEDS ORDERED: Vancomycin/Dextrose 5%-Water 200 ML IV SCH (09:00)
[2019-10-20] MEDS: metroNIDAZOLE/Normal Saline 100 ML IV SCH ×4 (00:07→23:00)
[2019-10-20] MEDS: Cefepime 2 GM Vial IVPUSH SCH ×3 (01:09→18:26)
[2019-10-20] MEDS: Sodium Chloride 0.9% 10 ML Syringe FLUSH PRN ×7 (01:18→18:32)
[2019-10-20] MEDS: Albuterol 8 GM Inhaler INH PRN ×3 (08:40→23:14)
[2019-10-20] MEDS: Acetaminophen 325 MG Tab PO PRN (08:45)
[2019-10-20] MEDS: amLODIPine 5 MG Tab PO SCH (09:45)
[2019-10-20] MEDS: Insulin Glargine,Human Rec. Analog 100 Units/ML 3 ML Pen SUBCUT SCH ×2 (09:47→21:20)
[2019-10-20] MEDS ORDERED: Insulin Glargine,Human Rec. Analog 100 Units/ML 3 ML Pen SUBCUT ONE (09:52)
[2019-10-20] MEDS: Vancomycin/Dextrose 5%-Water 200 ML IV SCH (12:34)
--- NOTE | 2019-10-20 14:10 | PN ---
DATE SEEN: 10/20/2019 SUBJECTIVE: Bahman Watson is a 48-year-old male in today for antibiotic therapy for 4th partial toe amputation, right foot. Doing well. Pain is controlled. Tolerating medications and care. Has an upcoming appointment on 10/25/2019, Infectious Disease. Voices no particular complaints or concerns. LABORATORY STUDIES: Glucose is noted 164, 137, 149, 272, and 134. Medications on board and appropriate. Vital signs are otherwise stable. I viewed his toe, healing well with good interval healing. ASSESSMENT: Complicated osteomyelitis, 4th toe, right foot. PLAN: Medications and treatment on board. /[id number] 1220 EWELINA/TOÑO
[2019-10-21] MEDS: Cefepime 2 GM Vial IVPUSH SCH ×3 (00:30→16:52)
[2019-10-21] MEDS: Sodium Chloride 0.9% 10 ML Syringe FLUSH PRN ×8 (01:08→18:06)
[2019-10-21] MEDS: Vancomycin/Dextrose 5%-Water 200 ML IV SCH ×2 (01:12→16:51)
[2019-10-21] MEDS: metroNIDAZOLE/Normal Saline 100 ML IV SCH ×3 (07:27→23:56)
[2019-10-21] MEDS: Albuterol 8 GM Inhaler INH PRN (07:33)
[2019-10-21] MEDS: Acetaminophen 325 MG Tab PO PRN (07:36)
[2019-10-21] MEDS: amLODIPine 5 MG Tab PO SCH (08:40)
[2019-10-21] MEDS: Insulin Glargine,Human Rec. Analog 100 Units/ML 3 ML Pen SUBCUT SCH ×2 (08:50→21:56)
--- NOTE | 2019-10-21 10:50 | PN ---
DATE SEEN: 10/21/2019 SUBJECTIVE: Bahman Watson is a 48-year-old male, complicated diabetes. Had a partial amputation of a single toe right foot. Doing well. Pain is controlled. Medications reviewed and appropriate, pharmacy is on board. OBJECTIVE: VITAL SIGNS: 36.7, 97, 138/97, 18, and 97%. GENERAL: Appears well. Busy on his phone. NECK: Benign. CHEST: Clear in all lung schneider. HEART: No ectopy or murmur. ABDOMEN: Benign. EXTREMITIES: Toe was examined, healing nicely. ASSESSMENT: Complicated osteomyelitis in toe, right foot. PLAN: Medications, care, and treatment on board. Upcoming followup in Infectious Disease, 10/25/2019. /[id number] 1040 EWELINA/TOÑO
[2019-10-21] MEDS ORDERED: Vancomycin/Dextrose 5%-Water 200 ML IV SCH (16:00)
[2019-10-22] MEDS: Acetaminophen 325 MG Tab PO PRN ×2 (00:05→21:04)
[2019-10-22] MEDS: Cefepime 2 GM Vial IVPUSH SCH ×3 (01:03→17:26)
[2019-10-22] MEDS: Sodium Chloride 0.9% 10 ML Syringe FLUSH PRN ×6 (01:04→23:59)
[2019-10-22] MEDS: Albuterol 8 GM Inhaler INH PRN ×2 (01:14→07:57)
[2019-10-22] MEDS: Vancomycin/Dextrose 5%-Water 200 ML IV SCH ×2 (04:54→17:36)
[2019-10-22] MEDS: metroNIDAZOLE/Normal Saline 100 ML IV SCH ×2 (07:46→15:51)
[2019-10-22] MEDS: Insulin Glargine,Human Rec. Analog 100 Units/ML 3 ML Pen SUBCUT SCH ×2 (09:10→21:00)
[2019-10-22] MEDS: amLODIPine 5 MG Tab PO SCH (09:11)
[2019-10-23] MEDS: metroNIDAZOLE/Normal Saline 100 ML IV SCH ×3 (00:02→17:09)
[2019-10-23] MEDS: Sodium Chloride 0.9% 10 ML Syringe FLUSH PRN ×7 (01:27→19:22)
[2019-10-23] MEDS: Cefepime 2 GM Vial IVPUSH SCH ×3 (01:28→18:03)
[2019-10-23] MEDS: Vancomycin/Dextrose 5%-Water 200 ML IV SCH ×2 (04:51→18:08)
[2019-10-23] MEDS: amLODIPine 5 MG Tab PO SCH (08:49)
[2019-10-23] MEDS: Insulin Glargine,Human Rec. Analog 100 Units/ML 3 ML Pen SUBCUT SCH ×2 (08:50→20:51)
[2019-10-24] MEDS: metroNIDAZOLE/Normal Saline 100 ML IV SCH ×4 (00:05→23:53)
[2019-10-24] MEDS: Sodium Chloride 0.9% 10 ML Syringe FLUSH PRN ×7 (00:06→18:17)
[2019-10-24] MEDS: Cefepime 2 GM Vial IVPUSH SCH ×3 (01:43→17:06)
[2019-10-24] MEDS: Vancomycin/Dextrose 5%-Water 200 ML IV SCH ×2 (04:49→17:06)
[2019-10-24] MEDS: Insulin Glargine,Human Rec. Analog 100 Units/ML 3 ML Pen SUBCUT SCH ×2 (08:00→20:56)
[2019-10-24] MEDS: amLODIPine 5 MG Tab PO SCH (08:08)
[2019-10-24] MEDS: Acetaminophen 325 MG Tab PO PRN (17:21)
[2019-10-24] MEDS: Albuterol 8 GM Inhaler INH PRN (17:23)
[2019-10-25] MEDS: Sodium Chloride 0.9% 10 ML Syringe FLUSH PRN ×2 (00:57→01:29)
[2019-10-25] MEDS: Cefepime 2 GM Vial IVPUSH SCH ×3 (00:57→17:19)
[2019-10-25] MEDS: Vancomycin/Dextrose 5%-Water 200 ML IV SCH ×2 (05:31→17:26)
[2019-10-25] MEDS: metroNIDAZOLE/Normal Saline 100 ML IV SCH ×2 (08:06→16:17)
[2019-10-25] MEDS: amLODIPine 5 MG Tab PO SCH (09:03)
[2019-10-25] MEDS: Insulin Glargine,Human Rec. Analog 100 Units/ML 3 ML Pen SUBCUT SCH (09:12)
--- NOTE | 2019-10-25 16:29 | PCM.DCSUM1 ---
Discharge Summary - Hospital Course HPI Initial Comments: Bahman present for swing bed admission for right 2nd toe osteomyelitis for IV antibiotics until Oct 24. He was admitted to on Sep 10-, had cut his right 2nd toenail the week prior to admission in [place], came in with swollen red toe. Started on Zosyn & Vancomycin, Ciprofloxacin & Flagyl in ER. Cr was 0.81 on admission, climbed to 1.66, Vancomycin trough was 32.7 on 09/13, was getting 1250 mg every 8 hours since admission, dose was held on 09/14, random vanco trough was 14.7, current dose of Vancomycin 1250 mg every 24 hrs was started on 09/15 to present. Last vancomycin trough was today before 1149 dose, came back at 13.4. Goal initially was 15-20, then changed to 10-15 for his renal function. Discharge paperwork states 15-20 goal but pharmacy will verify this. His creatinine today was 1.4. He underwent amputation of right 2nd toe on 09/12, dressing changed by podiatry today, has appt with them on 09/27 at 840am, dressing to stay in place until seen by podiatry. He is weight bearing with postop shoe. He was evaluated by PT/OT did not require any services. Follow up with Infectious disease on 10/12 at 1420. Also has nephrology appt on 09/28 at 1130 am and family medicine follow up on 09/28 at 1345. His last bowel movement was today. Eating and drinking well. Blood pressures were uncontrolled initially in [place] but controlled with Amlodipine and Coreg on discharge. Had PICC line placed at discharge by Infectious disease. Pain is controlled with Hydrocodone/APAP. - Discharge Data Discharge Date: 10/25/19 Discharge Disposition: Home, Self-Care 01 Condition: Good - Referral to Home Health Primary Care Physician: PCP None - Discharge Diagnosis/Problem(s) (1) Osteomyelitis of second toe of right foot SNOMED Code(s): 379455868, 380307238, 4399953925433741 ICD Code: M86.9 - OSTEOMYELITIS, UNSPECIFIED Status: Resolved Current Visit: Yes (2) Status post amputation of toe of right foot SNOMED Code(s): 36242241251467467, 29656204650938283 ICD Code: Z89.421 - ACQUIRED ABSENCE OF OTHER RIGHT TOE(S) Status: Chronic Current Visit: Yes Onset Date: ~09/13/19 (3) Diabetes SNOMED Code(s): 96228080 ICD Code: E11.9 - TYPE 2 DIABETES MELLITUS WITHOUT COMPLICATIONS Status: Chronic Current Visit: Yes Qualifiers: Diabetes mellitus type: type 2 Diabetes mellitus tank terminal gauger insulin use: unspecified tank terminal gauger insulin use status (4) History of alcohol dependence SNOMED Code(s): 974346330 ICD Code: F10.21 - ALCOHOL DEPENDENCE, IN REMISSION Status: Chronic Current Visit: Yes (5) Acute kidney injury SNOMED Code(s): 83466226, 62417292 ICD Code: N17.9 - ACUTE KIDNEY FAILURE, UNSPECIFIED Status: Resolved Current Visit: Yes Onset Date: ~09/14/19 (6) Hypertension SNOMED Code(s): 52023301 ICD Code: I10 - ESSENTIAL (PRIMARY) HYPERTENSION Status: Chronic Current Visit: Yes - Patient Summary/Data Hospital Course: Completed 6 week course of Vancomycin and Flagyl, WBC 3.6, CRP <0.2. He has not required any Hydrocodone/APAP since admission. Had some low blood pressures initially so Coreg and Amlodipine was discontinued, his pressures started going up so Amlodipine was restarted. Blood sugars have been in 200s on Lantus 15 units bid, will need meter with testing supplies to go home. Would like the [employer] [facility]. Scripts sent to [facility]. - Patient Instructions Diet: Diabetic Diet Activity: As Tolerated Notify Provider of: Fever, Increased Pain, Nausea and/or Vomiting Other/Special Instructions: Follow up with Family Practice in [place] in 1-2 weeks to establish care for your diabetes. - Discharge Plan *PRESCRIPTION DRUG MONITORING PROGRAM REVIEWED*: No Prescriptions/Med Rec: Insulin Glarg,Human.Rec.Analog [Lantus Solostar] 15 unit SQ BID #1 box amLODIPine [Norvasc] 5 mg PO DAILY 30 Days #30 tablet Acetaminophen [Tylenol] 650 mg PO Q4H PRN #30 tablet PRN Reason: Pain (Moderate 4-6) Albuterol [Ventolin HFA] 2 puff INH Q4H PRN 30 Days #1 inhaler PRN Reason: Dyspnea Home Medications: Home Meds Acetaminophen [Tylenol] 650 mg PO Q4H PRN #30 tablet 10/25/19 [Rx] Albuterol [Ventolin HFA] 2 puff INH Q4H PRN 30 Days #1 inhaler 10/25/19 [Rx] Insulin Glarg,Human.Rec.Analog [Lantus Solostar] 15 unit SQ BID #1 box 10/25/19 [Rx] amLODIPine [Norvasc] 5 mg PO DAILY 30 Days #30 tablet 10/25/19 [Rx] Patient Handouts: Insulin Treatment for Diabetes Mellitus, Osteomyelitis, Adult, Diabetes Mellitus and Skin Care, PICC Insertion, Care After, Toe Amputation, Care After, Fall Prevention in Hospitals, Adult, Insulin Glargine injection, Venous Thromboembolism Prevention - Discharge Summary/Plan Comment DC Time >30 min.: No - General Info Date of Service: 10/25/19 Subjective Update: Feeling well, labs normal today. Will complete his antibiotics later this afternoon. No fevers, chills. NO chest or abdominal pain. No nausea, vomiting or diarrhea. - Patient Data Vitals - Most Recent: Last Vital Signs Temp 98.1 F 10/25/19 08:00 Pulse 71 10/25/19 08:00 Resp 17 10/25/19 08:00 BP 139/91 H 10/25/19 09:03 Pulse Ox 97 10/25/19 08:00 Weight - Most Recent: 184 lb 4 oz I&O - Last 24 hours: Intake & Output 10/25/19 10/25/19 10/25/19 06:59 14:59 22:59 Intake Total 300 93 Balance 300 93 Lab Results - Last 24 hrs: Laboratory Results - last 24 hr 10/23/19 10/24/19 10/24/19 Range/Units 12:50 05:08 17:33 WBC (4.5-12.0) X10-3/uL RBC (4.30-5.75) x10(6)uL Hgb (13.5-17.8) g/dL Hct (30.0-51.3) % MCV (80-96) fL MCH (27.7-33.6) pg MCHC (32.2-35.4) g/dL RDW (11.5-15.5) % Plt Count (125-369) X10(3)uL MPV (7.4-10.4) fL Neut % (Auto) (46-82) % Lymph % (Auto) (13-37) % Johnston % (Auto) (4-12) % Eos % (Auto) (1.0-5.0) % Baso % (Auto) (0-2) % Neut # (Auto) (1.6-8.3) # Lymph # (Auto) (0.6-5.0) # Johnston # (Auto) (0.0-1.3) # Eos # (Auto) (0.0-0.8) # Baso # (Auto) (0.0-0.2) # POC Glucose 231 H 325 H 243 H (74-100) mg/dL ALT (12-36) U/L C-Reactive Protein (0.5-0.9) mg/dL 10/25/19 10/25/19 10/25/19 Range/Units 05:35 06:25 06:25 WBC 3.6 L (4.5-12.0) X10-3/uL RBC 3.93 L (4.30-5.75) x10(6)uL Hgb 12.1 L (13.5-17.8) g/dL Hct 36.4 (30.0-51.3) % MCV 92.7 (80-96) fL MCH 30.8 (27.7-33.6) pg MCHC 33.2 (32.2-35.4) g/dL RDW 11.5 (11.5-15.5) % Plt Count 223 (125-369) X10(3)uL MPV 7.6 (7.4-10.4) fL Neut % (Auto) 45.5 L (46-82) % Lymph % (Auto) 37.3 H (13-37) % Johnston % (Auto) 13.4 H (4-12) % Eos % (Auto) 3 (1.0-5.0) % Baso % (Auto) 1 (0-2) % Neut # (Auto) 1.7 (1.6-8.3) # Lymph # (Auto) 1.3 (0.6-5.0) # Johnston # (Auto) 0.5 (0.0-1.3) # Eos # (Auto) 0.1 (0.0-0.8) # Baso # (Auto) 0.0 (0.0-0.2) # POC Glucose 211 H (74-100) mg/dL ALT 28 D (12-36) U/L C-Reactive Protein (0.5-0.9) mg/dL 10/25/19 10/25/19 Range/Units 06:25 12:56 WBC (4.5-12.0) X10-3/uL RBC (4.30-5.75) x10(6)uL Hgb (13.5-17.8) g/dL Hct (30.0-51.3) % MCV (80-96) fL MCH (27.7-33.6) pg MCHC (32.2-35.4) g/dL RDW (11.5-15.5) % Plt Count (125-369) X10(3)uL MPV (7.4-10.4) fL Neut % (Auto) (46-82) % Lymph % (Auto) (13-37) % Johnston % (Auto) (4-12) % Eos % (Auto) (1.0-5.0) % Baso % (Auto) (0-2) % Neut # (Auto) (1.6-8.3) # Lymph # (Auto) (0.6-5.0) # Johnston # (Auto) (0.0-1.3) # Eos # (Auto) (0.0-0.8) # Baso # (Auto) (0.0-0.2) # POC Glucose 202 H (74-100) mg/dL ALT (12-36) U/L C-Reactive Protein < 0.2 L (0.5-0.9) mg/dL Med Orders - Current: Current Medications Acetaminophen (Tylenol) 650 mg PO Q4H PRN PRN Reason: Pain (moderate 4-6) Last Admin: 10/24/19 17:21 Dose: 650 mg Documented by: Albuterol (Ventolin Hfa) 0 gm INH Q4H PRN PRN Reason: Dyspnea Last Admin: 10/24/19 17:23 Dose: 2 puff Documented by: Amlodipine Besylate (Norvasc) 5 mg PO DAILY CYNTHIA Last Admin: 10/25/19 09:03 Dose: 5 mg Documented by: Cefepime HCl (Maxipime) 2 gm IVPUSH Q8H [facility] Stop: 10/25/19 23:59 Last Admin: 10/25/19 09:05 Dose: 2 gm Documented by: Heparin Sodium (Porcine) (Heparin Lock Flush 100 Units/Ml) 300 units IVPUSH ASDIRECTED PRN PRN Reason: FLUSH Last Admin: 10/22/19 05:48 Dose: 300 units Documented by: Heparin Sodium (Porcine) (Heparin Lock Flush 100 Units/Ml) 300 units IVPUSH Q8H [facility] Last Admin: 10/25/19 09:11 Dose: 300 units Documented by: Metronidazole (Flagyl 500 Mg In Ns 100 Ml) 100 mls @ 100 mls/hr IV Q8H [facility] Last Admin: 10/25/19 16:17 Dose: 100 mls/hr Documented by: Vancomycin HCl (Vancomycin 1 Gm/200 Ml In D5w) 200 mls @ 200 mls/hr IV Q12H [facility] Stop: 10/25/19 23:59 Last Admin: 10/25/19 05:31 Dose: 200 mls/hr Documented by: Insulin Glargine (Lantus Solostar) 15 units SUBCUT BID [facility] Last Admin: 10/25/19 09:12 Dose: 15 units Documented by: Polyethylene Glycol (Miralax) 17 gm PO DAILY PRN PRN Reason: Constipation Senna/Docusate Sodium (Senna Plus) 1 tab PO BID PRN PRN Reason: Constipation Sodium Chloride (Saline Flush) 10 ml FLUSH ASDIRECTED PRN PRN Reason: IV Use Last Admin: 10/25/19 01:29 Dose: 10 ml Documented by: Vancomycin HCl (Pharmacy To Dose - Vancomycin) 1 dose .XX ASDIRECTED [facility] Discontinued Medications Hydrocodone Bitart/Acetaminophen ([place] 325-5 Mg) 1 tab PO Q6H PRN PRN Reason: Pain (severe 7-10) Last Admin: 09/22/19 20:57 Dose: 1 tab Documented by: Albuterol (Ventolin Hfa) 0 gm INH Q4H PRN PRN Reason: SHORTNESS OF BREATH Amlodipine Besylate (Norvasc) 10 mg PO DAILY [facility] Last Admin: 10/03/19 08:14 Dose: Not Given Documented by: Carvedilol (Coreg) 25 mg PO BIDMEALS [facility] Last Admin: 10/03/19 08:13 Dose: Not Given Documented by: Heparin Sodium (Porcine) (Heparin Lock Flush 100 Units/Ml) 300 units IVPUSH Q8H [facility] Last Admin: 10/12/19 08:33 Dose: 300 units Documented by: Heparin Sodium (Porcine) (Heparin Lock Flush 100 Units/Ml) 300 units IVPUSH Q24H [facility] Last Admin: 09/23/19 14:29 Dose: 300 units Documented by: Heparin Sodium (Porcine) (Heparin Lock Flush 100 Units/Ml) 300 units IVPUSH Q24H [facility] Last Admin: 10/11/19 15:01 Dose: 300 units Documented by: Heparin Sodium (Porcine) (Heparin Lock Flush 100 Units/Ml) 300 units IVPUSH 0200,0900,1400,1700 [facility] Last Admin: 10/15/19 01:18 Dose: 300 units Documented by: Vancomycin HCl 1.25 gm/ Sodium (Chloride) 250 mls @ 125 mls/hr IV Q24H [facility] Last Admin: 09/23/19 12:04 Dose: 125 mls/hr Documented by: Vancomycin HCl (Vancomycin 1.5 Gm/300 Ml Premix) 300 mls @ 200 mls/hr IV Q24H [facility] Last Admin: 10/04/19 12:49 Dose: 200 mls/hr Documented by: Vancomycin HCl (Vancomycin 1 Gm/200 Ml In D5w) 200 mls @ 200 mls/hr IV Q12H [facility] Stop: 10/25/19 23:59 Last Admin: 10/11/19 06:53 Dose: Not Given Documented by: Vancomycin HCl 750 mg/ Sodium (Chloride) 250 mls @ 250 mls/hr IV Q12H [facility] Stop: 10/25/19 23:59 Last Admin: 10/14/19 13:47 Dose: Not Given Documented by: Vancomycin HCl (Vancomycin 1 Gm/200 Ml In D5w) 200 mls @ 200 mls/hr IV ONETIME ONE Stop: 10/14/19 14:29 Last Admin: 10/14/19 13:37 Dose: 200 mls/hr Documented by: Vancomycin HCl (Vancomycin 1 Gm/200 Ml In D5w) 200 mls @ 200 mls/hr IV Q14H [facility] Last Admin: 10/16/19 09:45 Dose: Not Given Documented by: Vancomycin HCl (Vancomycin 1 Gm/200 Ml In D5w) 200 mls @ 200 mls/hr IV Q14H [facility] Last Admin: 10/21/19 01:12 Dose: 200 mls/hr Documented by: Metronidazole (Flagyl) 500 mg PO Q8H [facility] Stop: 10/25/19 23:59 Last Admin: 10/12/19 08:20 Dose: 500 mg Documented by: Polyethylene Glycol (Miralax) 17 gm PO DAILY [facility] Last Admin: 09/23/19 08:47 Dose: Not Given Documented by: Senna/Docusate Sodium (Senna Plus) 1 tab PO BID [facility] Last Admin: 09/23/19 08:43 Dose: 1 tab Documented by: - Exam General: Reports: Alert, Oriented, Cooperative, No Acute Distress Lungs: Reports: Clear to Auscultation, Normal Respiratory Effort Cardiovascular: Reports: Regular Rate, Regular Rhythm GI/Abdominal Exam: Normal Bowel Sounds, Soft, Non-Tender, No Distention Extremities: No Pedal Edema Skin: Reports: Warm, Dry, Intact
== END 2019-10-25 18:40 | disposition home or self-care (01) | DRG 638 ==
LOC: FB.MS 15:53
PROVIDERS: ADMIT Family Medicine; ATTEND Family Medicine
DX: E11.69 Type 2 diabetes mellitus with other specified complication (principal); M86.8X7 Other osteomyelitis, ankle and foot; E11.52 Type 2 diabetes mellitus with diabetic peripheral angiopathy with gangrene; I96 Gangrene, not elsewhere classified; N17.9 Acute kidney failure, unspecified; Z89.421 Acquired absence of other right toe(s); Z79.4 Long term (current) use of insulin; I10 Essential (primary) hypertension; Z79.899 Other long term (current) drug therapy; F17.210 Nicotine dependence, cigarettes, uncomplicated; J44.9 Chronic obstructive pulmonary disease, unspecified; Z91.19 Patient's noncompliance with other medical treatment and regimen; E11.51 Type 2 diabetes mellitus with diabetic peripheral angiopathy without gangrene; E11.42 Type 2 diabetes mellitus with diabetic polyneuropathy; F10.21 Alcohol dependence, in remission
CPT/HCPCS: 36415; 80202; 82565; 82962; 84460; 85025; 85651; 86140; A9270-GY; J0692; J1642; J1815-GY; J3370; J3490; J7050